=== PATIENT | female | born 1950 | race Caucasian/White ===

== ENCOUNTER 2019-04-08 08:58 | Inpatient (IN) | payer MEDICARE ==
[2019-03-27 10:25] LABS: BASOPHILS # (AUTO) 0.05 x10^3/uL (0-0.1); BASOPHILS % (AUTO) 1 % (0-1); EOSINOPHILS # (AUTO) 0.36 x10^3/uL (0-0.4); EOSINOPHILS % (AUTO) 5 % (1-7); LYMPHOCYTES # (AUTO) 1.89 x10^3/uL (1-3.4); LYMPHOCYTES % (AUTO) 28 % (22-44); MD NO; MEAN CORPUSCULAR HEMOGLOBIN 30.1 pg (27.0-34.8); MEAN CORPUSCULAR HGB CONC 32.5 g/dL (32.4-35.8); MEAN CORPUSCULAR VOLUME 92.4 fL (80-100); MEAN PLATELET VOLUME 9.4 fL (7.4-10.4); MONOCYTES # (AUTO) 0.62 x10^3/uL (0.2-0.8); MONOCYTES % (AUTO) 9 % (2-9); NEUTROPHILS # (AUTO) 3.88 x10^3/uL (1.8-6.8); NEUTROPHILS % (AUTO) 57 % (42-75); PLATELET COUNT 252 x10^3/uL (130-400); RED BLOOD COUNT 4.73 x10^6/uL (3.82-5.3); RED CELL DISTRIBUTION WIDTH 13.2 % (9.6-15.2)
[2019-03-27 10:33] LABS: ALANINE AMINOTRANSFERASE 23 U/L (12-78); ALBUMIN 3.7 g/dL (3.4-5.0); ANION GAP 5 mmol/L (5-15); CALCIUM 8.7 mg/dL (8.5-10.1); CHLORIDE 112 mmol/L (98-107); CREATININE 0.81 mg/dL (0.55-1.02)
[2019-03-27 10:35] LABS: ALKALINE PHOSPHATASE 67 U/L (45-117); BILIRUBIN,TOTAL 0.4 mg/dL (0.2-1.0); TOTAL PROTEIN 6.9 g/dL (6.4-8.2)
[~2019-04-08] VITALS: Ht 170.2 cm; Wt 74.5 kg
[~2019-04-08 08:58] MED LIST: ALPR0.254 PO; EPINEPHRINE 1 MG/ML, 1ML ONE; ESTR42.53 TD; FISH OIL PO; KETOROLAC 60 MG/2 ML ONE; MULTIVITAMIN PO; PROP10TA16 PO; ROPIvacaine/PF 0.2%, 20 ML ONE; SODIUM CHLORIDE 0.9% 50 ML ONE; SUMA50TA4 PO; TRANEXAMIC ACID 100 MG/ML, 10ML ONE; VANCOMYCIN 1,000 MG ONE; VENL37.57 PO; [UNRECOGNIZED DRUG - OTHER]; [UNRECOGNIZED DRUG - OTHER] PO; vit D
[2019-04-08] MEDS ORDERED: LACTATED RINGERS 1,000 ML IV SCH (12:48)
[2019-04-08] MEDS ORDERED: ACETAMINOPHEN 500 MG TABLET PO ONE (13:00)
[2019-04-08] MEDS ORDERED: VANCOMYCIN PMX 1GM/200ML 200 ML IVPB ONE (13:00)
[2019-04-08] MEDS ORDERED: DIAZEPAM 5 MG TABLET PO ONE (13:00)
[2019-04-08] MEDS ORDERED: VANCOMYCIN 0 MG in SODIUM CHLORIDE 0.9% 250 ML IV ONE (13:00)
[2019-04-08] MEDS ORDERED: GABAPENTIN 300 MG CAPSULE PO ONE (13:00)
[2019-04-08] MEDS ORDERED: FENTANYL PF 250 MCG/5ML ONE ×2 (14:07→15:26)
[2019-04-08] MEDS ORDERED: MIDAZOLAM 1 MG/ML, 2ML ONE (14:07)
[2019-04-08] MEDS ORDERED: EPHEDRINE 50 MG/ML, 1ML ONE (14:45)
[2019-04-08] MEDS ORDERED: SUCCINYLCHOLINE 20 MG/ML, 10ML ONE (14:45)
[2019-04-08] MEDS ORDERED: DEXAMETHASONE 4 MG/ML, 1ML ONE ×2 (14:45→15:25)
[2019-04-08] MEDS ORDERED: ONDANSETRON 2MG/ML, 2ML ONE ×2 (14:45→15:25)
[2019-04-08] MEDS ORDERED: PSYLLIUM PACKET PO PRN (15:00)
[2019-04-08] MEDS ORDERED: BISACODYL 10 MG SUPP PR PRN (15:00)
[2019-04-08] MEDS ORDERED: PROMETHAZINE 25 MG/ML, 1ML IM PRN (15:00)
[2019-04-08] MEDS ORDERED: PROMETHAZINE 12.5 MG SUPP PR PRN (15:00)
[2019-04-08] MEDS ORDERED: DIPHENHYDRAMINE 25 MG CAPSULE PO PRN (15:00)
[2019-04-08] MEDS ORDERED: HYDROcodone/APAP 5/325 TABLET PO PRN (15:00)
[2019-04-08] MEDS ORDERED: HYDROmorphone 1 MG/ML, 1ML INJ IVPush PRN (15:00)
[2019-04-08] MEDS ORDERED: DIAZEPAM 5 MG TABLET PO PRN (15:00)
[2019-04-08] MEDS ORDERED: ZOLPIDEM 5MG TABLET PO PRN (15:00)
[2019-04-08] MEDS ORDERED: ALUMINUM/MAG/SIMETHICONE 30 ML UDC PO PRN (15:00)
[2019-04-08] MEDS ORDERED: SUMATRIPTAN 50 MG TABLET PO PRN (15:00)
[2019-04-08] MEDS ORDERED: ONDANSETRON 4 MG TABLET PO PRN (15:00)
[2019-04-08] MEDS ORDERED: SENNA/DOCUSATE TABLET PO PRN (15:00)
[2019-04-08] MEDS ORDERED: MAGNESIUM HYDROXIDE 8%, 30ML UDC PO PRN (15:00)
[2019-04-08] MEDS ORDERED: PROPOFOL 10 MG/ML, 20ML ONE (15:25)
[2019-04-08] MEDS ORDERED: CEFAZOLIN 1,000 MG ONE (15:25)
[2019-04-08] MEDS ORDERED: hydrALAzine 20 MG/ML, 1ML IV PRN (15:30)
[2019-04-08] MEDS ORDERED: MEPERIDINE/PF 25MG/ML,1ML IVPush PRN (15:30)
[2019-04-08] MEDS ORDERED: ALBUTEROL/IPRATROPIUM 2.5MG/0.5MG, 3 ML NPPB PRN (15:30)
[2019-04-08] MEDS ORDERED: MIDAZOLAM 1 MG/ML, 2ML IV PRN (15:30)
[2019-04-08] MEDS ORDERED: PROMETHAZINE 25 MG/ML, 1ML IV PRN (15:30)
[2019-04-08] MEDS ORDERED: SCOPOLAMINE PATCH, 1.5MG PATCH.TD72 TD PRN (15:30)
[2019-04-08] MEDS ORDERED: OXYcodone 5 MG/5 ML ORAL.SOL UDC PO PRN (15:30)
[2019-04-08] MEDS ORDERED: METOPROLOL 1 MG/ML, 5ML IV PRN (15:30)
[2019-04-08] MEDS ORDERED: DIAZEPAM 5 MG/ML, 2ML IVPush PRN (15:30)
[2019-04-08] MEDS ORDERED: HYDROmorphone 2 MG/ML, 1ML IVPush PRN (15:30)
[2019-04-08] MEDS ORDERED: VANCOMYCIN PER PHARMACY MC PRN (16:30)
[2019-04-08] MEDS ORDERED: TRANEXAMIC ACID 1,000 MG in SODIUM CHLORIDE 0.9% 100 ML IVPB ONE (17:00)
[2019-04-08] MEDS ORDERED: FENTANYL PF 100 MCG/2ML ONE ×2 (17:01→17:36)
[2019-04-08] MEDS: FENTANYL PF 100 MCG/2ML IV PRN ×2 (17:03→17:11)
[2019-04-08] MEDS ORDERED: OXYcodone 5 MG/5 ML ORAL.SOL UDC ONE (17:36)
[2019-04-08] MEDS: FERROUS SULFATE 325 MG TABLET PO SCH (18:00)
[2019-04-08] MEDS ORDERED: ONDANSETRON 2MG/ML, 2ML IV PRN (18:29)
[2019-04-08 20:10] VITALS: BP 123/76
[2019-04-08] MEDS: ACETAMINOPHEN 500 MG TABLET PO SCH (20:36)
[2019-04-08] MEDS: CALCIUM/VITAMIN D3 250-125 TABLET PO SCH (20:36)
[2019-04-08] MEDS: DOCUSATE 100 MG CAPSULE PO SCH (20:37)
[2019-04-08] MEDS: PROPRANOLOL 10 MG TABLET PO SCH (20:37)
[2019-04-08] MEDS: D5%-0.45% NACL 1,000 ML IV SCH (20:45)
[2019-04-08] MEDS ORDERED: CEFAZOLIN PMX 1GM/50ML 50 ML IVPB SCH (22:00)
[2019-04-08] MEDS: ASPIRIN 81 MG TABLET EC PO SCH (22:20)
[2019-04-08] MEDS: KETOROLAC 30 MG/1 ML IV SCH (23:30)
[2019-04-08 23:43] VITALS: BP 100/64
[2019-04-09] MEDS ORDERED: VANCOMYCIN 1,400 MG in SODIUM CHLORIDE 0.9% 250 ML IV ONE (01:00)
[2019-04-09] MEDS: ACETAMINOPHEN 500 MG TABLET PO SCH ×2 (03:10→09:42)
[2019-04-09 03:45] VITALS: BP 107/85
[2019-04-09] MEDS: KETOROLAC 30 MG/1 ML IV SCH ×2 (05:44→11:32)
[2019-04-09] MEDS ORDERED: DEXAMETHASONE 4 MG/ML, 1ML IVPush ONE (06:00)
[2019-04-09 07:36] VITALS: BP 95/60
[2019-04-09] MEDS: D5%-0.45% NACL 1,000 ML IV SCH (07:45)
[2019-04-09] MEDS: SCOPOLAMINE PATCH, 1.5MG PATCH.TD72 TD SCH (08:00)
[2019-04-09] MEDS ORDERED: MULTIVITAMINS/MINERALS TABLET PO SCH (09:00)
[2019-04-09] MEDS ORDERED: VENLAFAXINE 37.5MG TABLET PO SCH (09:00)
[2019-04-09] MEDS ORDERED: ASCORBIC ACID 500 MG TABLET PO SCH (09:00)
[2019-04-09] MEDS: ASPIRIN 81 MG TABLET EC PO SCH (09:42)
[2019-04-09] MEDS: CALCIUM/VITAMIN D3 250-125 TABLET PO SCH ×2 (09:42→11:32)
[2019-04-09] MEDS: PROPRANOLOL 10 MG TABLET PO SCH (09:43)
[2019-04-09] MEDS: FERROUS SULFATE 325 MG TABLET PO SCH (09:43)
[2019-04-09] MEDS: DOCUSATE 100 MG CAPSULE PO SCH (09:43)
[2019-04-09] MEDS ORDERED: HYDR-3653 PO (12:42)
[2019-04-09 12:55] VITALS: BP 98/62
== END 2019-04-09 13:10 | disposition home or self-care (01) | DRG 470 ==
LOC: ORIP 12:14 → 4NE 18:21 → DCLOUNGE 04-09 13:00
PROVIDERS: ADMIT Orthopaedic Surgery; ATTEND Orthopaedic Surgery
PROC: 0SR906Z Replacement of Right Hip Joint with Oxidized Zirconium on Polyethylene Synthetic Substitute, Open Approach (ICD-10-PCS; principal; 2019-04-08 14:45)
DX: M16.11 Unilateral primary osteoarthritis, right hip (principal); M65.9 Synovitis and tenosynovitis, unspecified; F41.1 Generalized anxiety disorder; Z88.8 Allergy status to other drugs, medicaments and biological substances; Z88.1 Allergy status to other antibiotic agents
CPT/HCPCS: 36415; 72170; 80053; 85014; 85018; 85025; 86850; 86900; 87081; 87147; C1713; G0378; J0171; J0690; J1100; J1885; J2250; J2405; J2704; J2795; J3010; J3370; Q0162; C1776; J0330; J7050; J7120